=== PATIENT | male | born 1980 | race Caucasian/White ===

== ENCOUNTER → 2018-08-06 | Outpatient (CLI) | payer OTHER ==
[2018-08-06 16:40] LABS: HCT 47.2 % (39.0-53.0); HGB 15.8 gm/dL (13.0-17.5); MCH 28.8 pg (25.0-35.0); MCHC 33.6 g/dL (31.0-37.0); MCV 85.8 fL (80.0-100.0); Mean Platelet Volume 7.5; Platelet Count 205 k/uL (150-450); RBC 5.49 m/uL (4.30-5.90); RDW 13.2 % (11.5-15.5); WBC 6.3 k/uL (3.8-10.6)
[2018-08-06 17:35] LABS: Erythrocyte Sedimentation Rate 2 mm/hr (0-15)
[2018-08-07 04:07] LABS: ALT 18 U/L (10-49); AST 26 U/L (14-35); Alkaline Phosphatase 56 U/L (41-126); C Reactive Protein <0.4 mg/dL (0.0-0.8); Calcium 9.7 mg/dL (8.7-10.3); Carbon Dioxide 26.6 mmol/L (21.6-31.8); Chloride 105 mmol/L (96-109); Globulin 1.6 g/dL (2.1-3.7); Glucose 88 mg/dL (70-110); Potassium 4.3 mmol/L (3.5-5.5); Sodium 140 mmol/L (135-145); Total Bilirubin 0.6 mg/dL (0.3-1.2); Total Protein 6.4 g/dL (6.2-8.2)
== END | disposition home or self-care (01) ==
LOC: LABWHC1 16:22
DX: R10.9 Unspecified abdominal pain (principal)
CPT/HCPCS: 36415; 80053; 83516; 84439; 84443; 85027; 85652; 86140

== ENCOUNTER → 2018-08-11 | Outpatient (CLI) | payer OTHER ==
--- NOTE | 2018-08-11 14:58 | US ---
EXAMINATION TYPE: US abdomen complete DATE OF EXAM: 08/11/2018 COMPARISON: NONE CLINICAL HISTORY: R10.9 Unspecified abdominal pain. midline and lower abdominal pain EXAM MEASUREMENTS: Liver Length: 14.7 cm Gallbladder Wall: 0.1 cm CBD: 0.3 cm Spleen: 12.0 cm Right Kidney: 10.6 x 6.6 x 5.4 cm Left Kidney: 10.7 x 5.7 x 5.7 cm Pancreas: wnl Liver: wnl Gallbladder: wnl Evidence for sonographic Ricardo's sign: no CBD: wnl Spleen: wnl Right Kidney: No hydronephrosis or masses seen Left Kidney: No hydronephrosis or masses seen Upper IVC: wnl Abd Aorta: some portions obscured by overlying bowel gas IMPRESSION: 1. No suspicious acute changes
== END ==
LOC: RADUSWWP 14:14
DX: R10.9 Unspecified abdominal pain (principal)
CPT/HCPCS: 76700

== ENCOUNTER 2019-01-11 06:14 | Emergency (ER) | payer OTHER ==
--- NOTE | 2019-01-11 06:31 | ED ---
General Adult HPI - General Chief complaint: Weakness Stated complaint: Weakness Time Seen by Provider: 01/11/19 06:30 Source: patient Mode of arrival: ambulatory Limitations: no limitations - History of Present Illness Initial comments: Massimo Leroy is a 38-year-old dominant presents the emergency department today for generalized weakness. Patient reports the past 24 hours he's just felt like his entire body is weak. He reports doing completely run down and like everything he does is taking extra effort. He denies any focal weakness any weakness in his left side greater than right right-sided greater than left her lower extremity is greater than upper. He reports the generalized weakness came on yesterday throughout the day it was his whole body. Patient reports that this morning he continued to feel weak and unwell psychiatric the ER for evaluation. Patient reports he was able to ambulate out of his house to his car and drive himself here. He reports normal gait no headaches vision changes or difficulty with speech or swallowing. Patient does report that last week he was treated for sinus infection and today he started feeling somewhat nauseated. He denies any persistent URI symptoms or any redness of breath. - Related Data Home Medications Medication Instructions Recorded Confirmed Amoxicillin (Unknown Dose) 2 cap PO BID 01/11/19 01/11/19 Allergies Allergy/AdvReac Type Severity Reaction Status Date / Time No Known Allergies Allergy Verified 01/11/19 07:22 Review of Systems ROS Statement: Those systems with pertinent positive or pertinent negative responses have been documented in the HPI. ROS Other: All systems not noted in ROS Statement are negative. Past Medical History Past Medical History: No Reported History History of Any Multi-Drug Resistant Organisms: None Reported Past Surgical History: No Surgical Hx Reported Past Psychological History: No Psychological Hx Reported Smoking Status: Never smoker Past Alcohol Use History: None Reported Past Drug Use History: None Reported General Exam - General Exam Comments Initial Comments: Physical Exam GENERAL: Patient is well-developed and well-nourished. Patient is nontoxic and well-hydrated and is in no distress. HENT: Normocephalic, Atraumatic. EYES: PERRL, EOMI PULMONARY: Unlabored respirations. No audible rales rhonchi or wheezing was noted. CARDIOVASCULAR: There is a regular rate and rhythm without any murmurs gallops or rubs. ABDOMEN: Soft and nontender with normal bowel sounds. SKIN: Skin is clear with no lesions or rashes and otherwise unremarkable. : Deferred NEUROLOGIC: Patient is alert and oriented x3. Moving all extremities spontaneously Patellar and achellies reflexes 2+ bilaterally No limb drift MUSCULOSKELETAL: Normal extremities with adequate strength and full range of motion. No lower extremity swelling or edema. No calf tenderness. Normal [employer] strength, normal per extremity strength normal lower extremity range of motion and strength, normal gait PSYCHIATRIC: Normal psychiatric evaluation. Limitations: no limitations Course Vital Signs 01/11/19 01/11/19 06:20 07:23 Temperature 98.2 F 98.1 F Pulse Rate 101 H 73 Respiratory 20 18 Rate Blood Pressure 125/72 120/71 O2 Sat by Pulse 97 99 Oximetry Medical Decision Making - Medical Decision Making Patient was seen and evaluated history is obtained from patient Vital signs are within normal limits Patient is afebrile next and physical exam with no acute findings patient reports subjective weakness but has no objective findings of weakness normal strength, normal range of motion, normal reflexes Was able to stand from the bed and ambulate from room 10 in the emergency department to the x-ray suite and back without any difficulty Labs were unremarkable EKG was obtained at 6:51 AM rate of 86 rhythm is sinus there is normal axis are normal intervals, HI 142, QRS 88, QTC is 447 there are no acute ST elevations or depressions there is no evidence of acute ischemia or infarction. Laboratory and EKG results were discussed with the patient who expresses relief that everything has been normal thus far. At this time patient's comfortable with the plan for discharge home with oral hydration and rest. I offer the patient with no he stated he didn't need it he will return to work tomorrow. Al brett questions pertaining care were answered return parameters were discussed patient discharged home in stable condition. - Lab Data Result diagrams: 01/11/19 06:40 01/11/19 06:40 Lab Results 01/11/19 01/11/19 Range/Units 06:40 06:40 WBC 7.6 (3.8-10.6) k/uL RBC 5.37 (4.30-5.90) m/uL Hgb 15.3 (13.0-17.5) gm/dL Hct 44.5 (39.0-53.0) % MCV 82.8 (80.0-100.0) fL MCH 28.6 (25.0-35.0) pg MCHC 34.5 (31.0-37.0) g/dL RDW 13.8 (11.5-15.5) % Plt Count 299 (150-450) k/uL Neutrophils % 69 % Lymphocytes % 21 % Monocytes % 5 % Eosinophils % 3 % Basophils % 1 % Neutrophils # 5.3 (1.3-7.7) k/uL Lymphocytes # 1.6 (1.0-4.8) k/uL Monocytes # 0.4 (0-1.0) k/uL Eosinophils # 0.2 (0-0.7) k/uL Basophils # 0.0 (0-0.2) k/uL Sodium 140 (137-145) mmol/L Potassium 4.4 (3.5-5.1) mmol/L Chloride 107 (98-107) mmol/L Carbon Dioxide 24 (22-30) mmol/L Anion Gap 9 mmol/L BUN 19 (9-20) mg/dL Creatinine 0.95 (0.66-1.25) mg/dL Est GFR (CKD-EPI)AfAm >90 (>60 ml/min/1.73 sqM) Est GFR (CKD-EPI)NonAf >90 (>60 ml/min/1.73 sqM) Glucose 106 H (74-99) mg/dL Calcium 9.9 (8.4-10.2) mg/dL Total Bilirubin 0.6 (0.2-1.3) mg/dL AST 21 (17-59) U/L ALT 21 (21-72) U/L Alkaline Phosphatase 66 (38-126) U/L Creatine Kinase 133 (55-170) U/L Total Protein 7.2 (6.3-8.2) g/dL Albumin 4.3 (3.5-5.0) g/dL Disposition Clinical Impression: Fatigue Disposition: HOME SELF-CARE Condition: Stable Instructions (If sedation given, give patient instructions): Viral Syndrome (ED) Is patient prescribed a controlled substance at d/c from ED?: No Referrals: Cindy Van MD [Primary Care Provider] - 1-2 days
[2019-01-11] MEDS ORDERED: SODIUM CHLORIDE 0.9% 1,000 ML IV STA (06:38)
[2019-01-11 06:58] LABS: Basophils % (A) 1 %; Eosinophils # (A) 0.2 k/uL (0-0.7); Eosinophils % (A) 3 %; HCT 44.5 % (39.0-53.0); HGB 15.3 gm/dL (13.0-17.5); Lymphocytes # (A) 1.6 k/uL (1.0-4.8); Lymphocytes % (A) 21 %; MCH 28.6 pg (25.0-35.0); MCHC 34.5 g/dL (31.0-37.0); MCV 82.8 fL (80.0-100.0); Mean Platelet Volume 7.2; Monocytes # (A) 0.4 k/uL (0-1.0); Monocytes % (A) 5 %; Neutrophils # (A) 5.3 k/uL (1.3-7.7); Neutrophils % (A) 69 %; Platelet Count 299 k/uL (150-450); RBC 5.37 m/uL (4.30-5.90); RDW 13.8 % (11.5-15.5); WBC 7.6 k/uL (3.8-10.6)
[2019-01-11 07:10] LABS: ALT 21 U/L (21-72); AST 21 U/L (17-59); Albumin 4.3 g/dL (3.5-5.0); Alkaline Phosphatase 66 U/L (38-126); Anion Gap 9 mmol/L; Blood Urea Nitrogen 19 mg/dL (9-20); Calcium 9.9 mg/dL (8.4-10.2); Carbon Dioxide 24 mmol/L (22-30); Chloride 107 mmol/L (98-107); Creatine Kinase 133 U/L (55-170); Glucose 106 mg/dL (74-99); Potassium 4.4 mmol/L (3.5-5.1); Sodium 140 mmol/L (137-145); Total Bilirubin 0.6 mg/dL (0.2-1.3); Total Protein 7.2 g/dL (6.3-8.2)
--- NOTE | 2019-01-11 07:22 | XR ---
EXAMINATION TYPE: XR chest 2V DATE OF EXAM: 01/11/2019 COMPARISON: None HISTORY: 38-year-old male with weakness TECHNIQUE: PA and lateral views FINDINGS: Normal size. Aorta and pulmonary vasculature within normal limits. Mild central peribronchial cuffing noted. Strandy bibasilar atelectasis. No consolidation or pleural effusion. IMPRESSION: Mild peribronchial cuffing could represent bronchitis or asthma. Otherwise, strandy areas of atelect asis in the lower lungs without acute process.
[2019-01-11 07:27] VITALS: RESP 18
[2019-01-11 08:43] VITALS: BP 115/84; PULSE 71; TEMP 98
== END 2019-01-11 08:43 | disposition home or self-care (01) ==
LOC: EC 06:14
DX: R53.83 Other fatigue (principal); R53.1 Weakness
CPT/HCPCS: 36415; 71046; 80053; 82550; 85025; 93005; 96360; 99285

== ENCOUNTER → 2019-02-09 | Outpatient (CLI) | payer OTHER ==
--- NOTE | 2019-02-09 14:45 | CT ---
EXAMINATION TYPE: CT ChestAbdPelvis w con DATE OF EXAM: 02/09/2019 COMPARISON: HISTORY: fevers and chills CT DLP: 1635 mGycm Automated exposure control for dose reduction was used. CONTRAST: CT scan of the chest, abdomen and pelvis is performed with Oral Contrast and with IV Contrast, patien t injected with 100 mL of Isovue 300. FINDINGS: LUNGS: The lungs are grossly clear, there is no concerning parenchymal mass or nodule identified. T here is no pleural effusion or pneumothorax seen. The tracheobronchial tree is patent. MEDIASTINUM: There are no greater than 1 cm hilar or mediastinal lymph nodes. No pericardial effusi on is seen. AORTA: No significant abnormality is seen. Branch vessels show no perivascular inflammatory change, there is no caliber narrowing evident. OTHER: No additional significant abnormality is seen. LIVER/GB: No significant abnormality is appreciated. PANCREAS: No significant abnormality is seen. SPLEEN: Slightly enlarged measuring greater than 14 cm ADRENALS: No significant abnormality is seen. KIDNEYS: No significant abnormality is seen. REPRODUCTIVE ORGANS: No gross abnormality seen. BOWEL: No significant abnormality is seen. The appendix is normal. FREE AIR: No Free Air visible. ASCITES: None seen. RETROPERITONEAL ADENOPATHY: No retroperitoneal adenopathy is seen. LYMPH NODES: No greater than 1 cm abdominal or pelvic lymph nodes are appreciated. URINARY BLADDER: No significant abnormality is seen. PELVIC ADENOPATHY: None visualized. OSSEOUS STRUCTURES: Mild degenerative disc changes are present at the lower lumbar spine. IMPRESSION: Splenomegaly and degenerative disc disease.
== END | disposition home or self-care (01) ==
LOC: RADCTMAIN 10:56
PROVIDERS: ATTEND Internal Medicine Rheumatology
DX: R16.1 Splenomegaly, not elsewhere classified (principal); I77.6 Arteritis, unspecified
CPT/HCPCS: 71260; 74177; Q9967

== ENCOUNTER → 2019-03-24 | Outpatient (CLI) | payer OTHER ==
--- NOTE | 2019-03-24 16:32 | XR ---
EXAMINATION TYPE: XR elbow complete LT DATE OF EXAM: 03/24/2019 COMPARISON: NONE HISTORY: Pain and bump TECHNIQUE: 3 views FINDINGS: There is spurring on the olecranon process of the ulna. There is some spurring on the coron oid process. There is no sign of joint effusion. There is no fracture nor dislocation. IMPRESSION: Hypertrophic degenerative changes. No fracture.
== END | disposition home or self-care (01) ==
LOC: RADXRMAIN 15:54
PROVIDERS: ATTEND Internal Medicine Hematology & Oncology
DX: G93.89 Other specified disorders of brain (principal); D72.819 Decreased white blood cell count, unspecified; R16.1 Splenomegaly, not elsewhere classified; M12.9 Arthropathy, unspecified

== ENCOUNTER 2020-12-04 10:24 | Emergency (ER) | payer BC, OTHER ==
[2020-12-04 10:40] VITALS: RESP 18; TEMP 98.2
--- NOTE | 2020-12-04 12:37 | XR ---
EXAMINATION TYPE: XR chest 2V DATE OF EXAM: 12/04/2020 COMPARISON: 01/11/2019 TECHNIQUE: PA and lateral views submitted. HISTORY: Chest pain FINDINGS: The lungs are clear and there is no pneumothorax, pleural effusion, or focal pneumonia. Heart size normal. No overt failure. Interstitium stable from prior exam. IMPRESSION: 1. Mild prominence of the interstitium which is stable from the prior exam could be on the basis of c hronic bronchitis correlate clinically to exclude an early interstitial pneumonitis.
--- NOTE | 2020-12-04 13:00 | ED ---
Chest Pain HPI - General Chief Complaint: Chest Pain Stated Complaint: covid+/chest pain Time Seen by Provider: 12/04/20 12:41 Source: patient Mode of arrival: ambulatory Limitations: no limitations - History of Present Illness Initial Comments: This is a 4-year-old male who presents emergency department for episodes of chest pain and sweating in the middle of night. The patient states he was diagnosed with cold it about one week ago. He's been having mostly upper respiratory symptoms and loss of taste and smell. He states he did have some backaches previously however this has since resolved. He does note that his left leg feels a little weak to him however he still able to ambulate without any difficulty. He states that the chest pain will wake him up at night. He states he has this jolting sensation in his chest and that has associated anxiety and diaphoresis. The patient states that this will last a few minutes and then subsided on its own. The pain is not constant. Is not pleuritic in nature. He denies any shortness of breath currently. No chest pain currently. The patient states he was concerned about blood clots we can emergency department for evaluation. Patient does have a history of Jason rate and also was concerned about that with his left leg weakness. No other acute complaints. - Related Data Home Medications Medication Instructions Recorded Confirmed Ascorbic Acid [Vitamin C] 500 mg PO DAILY 12/04/20 12/04/20 Aspirin EC [Ecotrin Low Dose] 81 mg PO DAILY 12/04/20 12/04/20 Cholecalciferol [Vitamin D3 (25 25 mcg PO DAILY 12/04/20 12/04/20 Mcg = 1000 Iu)] Zinc 50 mg PO DAILY 12/04/20 12/04/20 Allergies Allergy/AdvReac Type Severity Reaction Status Date / Time No Known Allergies Allergy Verified 12/04/20 13:23 Review of Systems ROS Statement: Those systems with pertinent positive or pertinent negative responses have been documented in the HPI. ROS Other: All systems not noted in ROS Statement are negative. EKG Findings - EKG Comments: EKG Findings:: EKG showing normal sinus rhythm with a rate of 74. There is no abnormal ST segment changes or T-wave inversions. QTC is 410. Other intervals normal. No ectopy. Past Medical History Past Medical History: No Reported History History of Any Multi-Drug Resistant Organisms: None Reported Past Surgical History: No Surgical Hx Reported Past Psychological History: No Psychological Hx Reported Smoking Status: Never smoker Past Alcohol Use History: None Reported Past Drug Use History: Marijuana General Exam - General Exam Comments Initial Comments: Constitutional: Awake alert Appears comfortable Head: Normocephalic atraumatic Eyes: no conjunctival injection No scleral icterus EOMI Neck: No JVD Supple Heart: Regular rate rhythm normal S1-S2 no murmurs Lungs: Clear to auscultation bilaterally No wheezing No rales Abdomen: Soft nondistended nontender Extremities: Non edematous DP pulses intact Radial pulses intact Neuro: A&Ox3, 5 out of 5 strength with hip flexion and knee flexion and extension, dorsiflexion and plantar flexion bilaterally, 2 out of 4 patellar re flexes bilaterally sensation intact to light touch bilaterally No focal neurologic deficits Psych: Appropriate mood and affect Limitations: no limitations Course Vital Signs 12/04/20 12/04/20 10:34 14:49 Temperature 98.2 F 98.2 F Pulse Rate 72 58 L Respiratory 18 18 Rate Blood Pressure 124/81 121/70 O2 Sat by Pulse 97 100 Oximetry Chest Pain MDM - MDM Is a 40-year-old male presents emergency department for chest pain. The patient had no focal deficits on examination. EKG was unremarkable. D-dimer was unremarkable. Chest x-ray showed mild inflammation and the patient O2 sat was normal on room air. Patient was advised to monitor symptoms and return for any worsening or changing symptoms. Otherwise follow-up close with his primary doctor. All questions were answered. Disposition Clinical Impression: COVID-19 Disposition: HOME SELF-CARE Condition: Stable Instructions (If sedation given, give patient instructions): Chest Pain (ED) Is patient prescribed a controlled substance at d/c from ED?: No Referrals: Cindy Van MD [Primary Care Provider] - 1-2 days
[2020-12-04 13:31] LABS: Basophils % (A) 1 %; Eosinophils # (A) 0.1 k/uL (0-0.7); Eosinophils % (A) 2 %; HCT 44.8 % (39.0-53.0); HGB 16.1 gm/dL (13.0-17.5); Lymphocytes # (A) 1.6 k/uL (1.0-4.8); Lymphocytes % (A) 32 %; MCH 30.4 pg (25.0-35.0); MCHC 35.9 g/dL (31.0-37.0); MCV 84.8 fL (80.0-100.0); Mean Platelet Volume 8.4; Monocytes # (A) 0.3 k/uL (0-1.0); Monocytes % (A) 6 %; Neutrophils # (A) 2.8 k/uL (1.3-7.7); Neutrophils % (A) 58 %; Platelet Count 169 k/uL (150-450); RBC 5.29 m/uL (4.30-5.90); RDW 12.2 % (11.5-15.5); WBC 4.9 k/uL (3.8-10.6)
[2020-12-04 13:51] LABS: D-Dimer <0.17 mg/L FEU (<0.60); INR 1.1 (<1.2); Partial Thromboplastin Time 25.6 sec (22.0-30.0); Prothrombin Time 11.4 sec (9.0-12.0)
[2020-12-04 13:54] LABS: ALT 16 U/L (4-49); AST 26 U/L (17-59); African American GFR (CKD) >90 (>60 ml/min/1.73 sqM); Albumin 4.5 g/dL (3.5-5.0); Alkaline Phosphatase 61 U/L (38-126); Anion Gap 7 mmol/L; Blood Urea Nitrogen 16 mg/dL (9-20); Calcium 9.7 mg/dL (8.4-10.2); Carbon Dioxide 27 mmol/L (22-30); Chloride 103 mmol/L (98-107); Glucose 90 mg/dL (74-99); Non-African American GFR(CKD) >90 (>60 ml/min/1.73 sqM); Potassium 4.9 mmol/L (3.5-5.1); Sodium 137 mmol/L (137-145); Total Bilirubin 0.8 mg/dL (0.2-1.3)
[2020-12-04 14:54] VITALS: BP 121/70; PULSE 58
== END 2020-12-04 14:54 | disposition home or self-care (01) ==
LOC: EC 10:24
DX: U07.1 COVID-19 (principal); Z79.82 Long term (current) use of aspirin; Z79.899 Other long term (current) drug therapy
CPT/HCPCS: 36415; 71046; 80053; 85025; 85379; 85610; 85730; 99285

== ENCOUNTER → 2020-12-19 | Outpatient (CLI) | payer BC ==
--- NOTE | 2020-12-19 17:38 | XR ---
EXAMINATION TYPE: XR chest 2V DATE OF EXAM: 12/19/2020 COMPARISON: Chest x-ray 15 days ago. HISTORY: Chest pain 1 month ago. TECHNIQUE: Frontal and lateral views of the chest are obtained. FINDINGS: There is no new suspicious focal air space opacity, pleural effusion, or pneumothorax seen . The cardiac silhouette size remains within normal limits. The osseous structures are intact. IMPRESSION: No acute cardiopulmonary process. No significant change from prior.
== END | disposition home or self-care (01) ==
LOC: RADXRMAIN 16:53
PROVIDERS: ATTEND Internal Medicine
DX: R07.9 Chest pain, unspecified (principal)
CPT/HCPCS: 71046

== ENCOUNTER 2021-05-04 22:41 | Emergency (ER) | payer BC ==
[2021-05-04 22:52] VITALS: TEMP 97.6
[2021-05-04] MEDS ORDERED: SODIUM CHLORIDE 0.9% 1,000 ML IV STA (23:17)
--- NOTE | 2021-05-04 23:19 | ED ---
Syncope HPI - General Chief Complaint: Syncope Stated Complaint: Syncope Time Seen by Provider: 05/04/21 22:42 Source: patient, EMS, RN notes reviewed, old records reviewed Mode of arrival: EMS Limitations: no limitations - History of Present Illness Initial Comments: This is a 40-year-old male to the ER emergency department today for evaluation of syncopal event. He does have history of syncope has been evaluated by cardiology and was supposed were all provider which she has not done. Patient was in line at [facility] began to feel weak some abdominal cramping. Patient then became sweaty and passed out. Patient was found passed out as kind is brought to the ER for evaluation. Patient has had coronavirus about 3 months ago and received vaccine about a week and a half ago. Currently without chest pain or headache. 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 Patient states he worked 12 hours today without difficulty. Patient currently is without general complaint. He did have one samantha olmos MD Complaint: loss of consciousness -: minutes(s) Prodromal Symptoms: none -: second(s) Witnessed: yes - by bystander, yes - by EMS Injuries Sustained Associated with Event: None Current Symptoms: back to baseline History: previous syncopal episode Context: at rest Treatments Prior to Arrival: none - Related Data Home Medications Medication Instructions Recorded Confirmed No Known Home Medications 05/04/21 05/04/21 Allergies Allergy/AdvReac Type Severity Reaction Status Date / Time No Known Allergies Allergy Verified 05/04/21 22:53 Review of Systems ROS Statement: Those systems with pertinent positive or pertinent negative responses have been documented in the HPI. ROS Other: All systems not noted in ROS Statement are negative. Past Medical History Past Medical History: No Reported History Additional Past Medical History / Comment(s): GORDON haley+ october 2020 History of Any Multi-Drug Resistant Organisms: None Reported Past Surgical History: No Surgical Hx Reported Past Psychological History: No Psychological Hx Reported Smoking Status: Never smoker Past Alcohol Use History: None Reported Past Drug Use History: Marijuana General Exam Limitations: no limitations General appearance: alert, in no apparent distress Head exam: Present: atraumatic, normocephalic, normal inspection Eye exam: Present: normal appearance, PERRL, EOMI. Absent: scleral icterus, conjunctival injection, periorbital swelling ENT exam: Present: normal exam, mucous membranes moist Neck exam: Present: normal inspection. Absent: tenderness, meningismus, lymphadenopathy Respiratory exam: Present: normal lung sounds bilaterally. Absent: respiratory distress, wheezes, rales, rhonchi, stridor Cardiovascular Exam: Present: regular rate, normal rhythm, normal heart sounds. Absent: systolic murmur, diastolic murmur, rubs, gallop, clicks GI/Abdominal exam: Present: soft, normal bowel sounds. Absent: distended, tenderness, guarding, rebound, rigid Extremities exam: Present: normal inspection, full ROM, normal capillary refill. Absent: tenderness, pedal edema, joint swelling, calf tenderness Back exam: Present: normal inspection Neurological exam: Present: alert, oriented X3, CN II-XII intact Psychiatric exam: Present: normal affect, normal mood Skin exam: Present: warm, dry, intact, normal color. Absent: rash Course Vital Signs 05/04/21 22:48 Temperature 97.6 F Pulse Rate 62 Respiratory 18 Rate Blood Pressure 113/68 O2 Sat by Pulse 99 Oximetry EKG Findings - EKG Comments: EKG Findings:: EKG is sinus rhythm 62, MT 162 QRS 100 QTc 410 Medical Decision Making - Lab Data Result diagrams: 05/04/21 23:37 05/04/21 23:37 Lab Results 05/04/21 05/04/21 05/04/21 Range/Units 23:37 23:37 23:37 WBC 6.1 (3.8-10.6) k/uL RBC 4.85 (4.30-5.90) m/uL Hgb 14.7 (13.0-17.5) gm/dL Hct 43.0 (39.0-53.0) % MCV 88.6 (80.0-100.0) fL MCH 30.3 (25.0-35.0) pg MCHC 34.2 (31.0-37.0) g/dL RDW 13.0 (11.5-15.5) % Plt Count 214 (150-450) k/uL MPV 7.7 Neutrophils % 64 % Lymphocytes % 26 % Monocytes % 6 % Eosinophils % 2 % Basophils % 0 % Neutrophils # 3.9 (1.3-7.7) k/uL Lymphocytes # 1.6 (1.0-4.8) k/uL Monocytes # 0.4 (0-1.0) k/uL Eosinophils # 0.1 (0-0.7) k/uL Basophils # 0.0 (0-0.2) k/uL Sodium 136 L (137-145) mmol/L Potassium 3.9 (3.5-5.1) mmol/L Chloride 102 (98-107) mmol/L Carbon Dioxide 26 (22-30) mmol/L Anion Gap 8 mmol/L BUN 20 (9-20) mg/dL Creatinine 1.17 (0.66-1.25) mg/dL Est GFR (CKD-EPI)AfAm 90 (>60 ml/min/1.73 sqM) Est GFR (CKD-EPI)NonAf 78 (>60 ml/min/1.73 sqM) Glucose 85 (74-99) mg/dL Calcium 9.6 (8.4-10.2) mg/dL Phosphorus 4.1 (2.5-4.5) mg/dL Magnesium 2.1 (1.6-2.3) mg/dL Total Bilirubin 0.5 (0.2-1.3) mg/dL AST 30 (17-59) U/L ALT 15 (4-49) U/L Alkaline Phosphatase 47 (38-126) U/L Creatine Kinase 231 H (55-170) U/L NT-Pro-B Natriuret Pep 35 pg/mL Total Protein 6.4 (6.3-8.2) g/dL Albumin 4.2 (3.5-5.0) g/dL Serum Alcohol <10 mg/dL Disposition Clinical Impression: Syncope Disposition: HOME SELF-CARE Condition: Undetermined Instructions (If sedation given, give patient instructions): Syncope (ED) Is patient prescribed a controlled substance at d/c from ED?: No Referrals: Cindy Van MD [Primary Care Provider] - 1-2 days Sophia Acosta MD [STAFF PHYSICIAN] - 1-2 days
[2021-05-04 23:52] LABS: Basophils % (A) 0 %; Eosinophils # (A) 0.1 k/uL (0-0.7); Eosinophils % (A) 2 %; HGB 14.7 gm/dL (13.0-17.5); Lymphocytes # (A) 1.6 k/uL (1.0-4.8); Lymphocytes % (A) 26 %; MCH 30.3 pg (25.0-35.0); MCHC 34.2 g/dL (31.0-37.0); MCV 88.6 fL (80.0-100.0); Mean Platelet Volume 7.7; Monocytes # (A) 0.4 k/uL (0-1.0); Monocytes % (A) 6 %; Neutrophils # (A) 3.9 k/uL (1.3-7.7); Neutrophils % (A) 64 %; Platelet Count 214 k/uL (150-450); RBC 4.85 m/uL (4.30-5.90); WBC 6.1 k/uL (3.8-10.6)
--- NOTE | 2021-05-05 00:11 | CT ---
EXAMINATION TYPE: CT angio chest DATE OF EXAM: 05/05/2021 COMPARISON: None HISTORY: syncope CT DLP: 422.7 mGycm Automated exposure control for dose reduction was used. CONTRAST: Performed with IV Contrast, patient injected with 100 mL of Isovue 370. There are 3-D post processed images. There is no mediastinal adenopathy. There are no hilar masses. Thoracic aorta is intact. There is no aneurysm or dissection. Heart size is normal. There is no pericardial effusion. There is no evidence of filling defect in the pulmonary arteries. The lungs are clear of infiltrate. There is no evidence of a pulmonary mass. There is no pleural effu felisha. The thoracic spine is intact. There is no compression fracture. There is mild spurring in the thoraci c spine. IMPRESSION: Negative exam. No evidence of pulmonary embolism.
--- NOTE | 2021-05-05 00:18 | CT ---
EXAMINATION TYPE: CT abdomen pelvis w con DATE OF EXAM: 05/05/2021 COMPARISON: 02/09/2019 HISTORY: pain CT DLP: 1109.2 mGycm Automated exposure control for dose reduction was used. CONTRAST: Performed with IV Contrast, patient injected with 100 mL of Isovue 370. Images from the diaphragm to the floor the pelvis with IV contrast. Lung bases are clear. There is no pleural effusion. Heart size is normal. There is no pericardial eff usion. Liver spleen stomach pancreas gallbladder appear intact. Bile ducts are nondilated. There is no adrenal mass. Kidneys have normal size. There is no hydronephrosis. There is normal contr ast opacification of the kidneys. Delayed images show normal renal excretion. There is no retroperito neil adenopathy. Ureters are not dilated. Bladder distends smoothly. There is no inguinal hernia. There is no free fluid in the pelvis. There is no mesenteric edema. There is no ascites or free air. There is no bowel obstruction. Appendix is posterior and appears normal. Lumbar vertebra have normal alignment. There is disc space narrowing and vacuum disc at L4-5 and L5-S1. There is no compression f racture. The bony pelvis is intact. Hip joints are intact. IMPRESSION: Negative CT scan abdomen and pelvis. Normal appendix. No adverse change compared to old exam. Normal spleen.
[2021-05-05 00:20] LABS: INR 1.1 (<1.2); Prothrombin Time 11.4 sec (9.0-12.0)
[2021-05-05 00:32] LABS: ALT 15 U/L (4-49); AST 30 U/L (17-59); African American GFR (CKD) 90 (>60 ml/min/1.73 sqM); Albumin 4.2 g/dL (3.5-5.0); Alcohol <10 mg/dL; Alkaline Phosphatase 47 U/L (38-126); Anion Gap 8 mmol/L; Blood Urea Nitrogen 20 mg/dL (9-20); Calcium 9.6 mg/dL (8.4-10.2); Carbon Dioxide 26 mmol/L (22-30); Chloride 102 mmol/L (98-107); Creatine Kinase 231 U/L (55-170); Glucose 85 mg/dL (74-99); Magnesium 2.1 mg/dL (1.6-2.3); Non-African American GFR(CKD) 78 (>60 ml/min/1.73 sqM); Phosphorus 4.1 mg/dL (2.5-4.5); Potassium 3.9 mmol/L (3.5-5.1); Sodium 136 mmol/L (137-145); Total Bilirubin 0.5 mg/dL (0.2-1.3); Total Protein 6.4 g/dL (6.3-8.2)
[2021-05-05 00:49] LABS: Partial Thromboplastin Time 21.4 sec (22.0-30.0)
[2021-05-05 00:59] VITALS: BP 119/72; PULSE 71; RESP 16
== END 2021-05-05 00:55 | disposition home or self-care (01) ==
LOC: EC 22:41
DX: R55 Syncope and collapse (principal); F12.90 Cannabis use, unspecified, uncomplicated
CPT/HCPCS: 93005; 85379; 83880; 80053; 82550; 83735; 84100; 84443; 84484; 85025; 85610; 85730; 80320; 71275; 74177; 99284; Q9967

== ENCOUNTER 2024-05-14 08:41 | Emergency (ER) | payer BC ==
[2024-05-14 08:44] VITALS: RESP 18
[2024-05-14] MEDS: PROPARACAINE 0.5% OPHTH DROPS 15 ML BTL LEFT EYE STA (08:58)
[2024-05-14] MEDS: FLUORESCEIN STRIPS 1 MG STRIP LEFT EYE ONE (08:59)
--- NOTE | 2024-05-14 09:03 | ED ---
Eye Problem HPI - General Chief complaint: Eye Problems Stated complaint: Chlorine in left eye Time Seen by Provider: 05/14/24 08:45 Source: patient, RN notes reviewed Mode of arrival: ambulatory Limitations: no limitations - History of Present Illness Initial comments: This is a 43-year-old male who presents to the emergency department for a chemical burn to the left eye. States that he was at work and accidentally got powdered chlorine in his left eye. He irrigated this several times, but states that he still wanted to have it evaluated. Describes this as somewhat of a burning pain. States that his vision feels slightly blurry. - Related Data Home Medications Medication Instructions Recorded Confirmed No Known Home Medications 05/04/21 05/04/21 Allergies Allergy/AdvReac Type Severity Reaction Status Date / Time No Known Allergies Allergy Verified 05/14/24 08:44 Review of Systems ROS Statement: Those systems with pertinent positive or pertinent negative responses have been documented in the HPI. ROS Other: All systems not noted in ROS Statement are negative. Past Medical History Past Medical History: No Reported History Additional Past Medical History / Comment(s): GORDON haley+ october 2020 History of Any Multi-Drug Resistant Organisms: None Reported Past Surgical History: No Surgical Hx Reported Past Psychological History: No Psychological Hx Reported Smoking Status: Never smoker Past Alcohol Use History: Occasional Past Drug Use History: Marijuana General Exam Limitations: no limitations General appearance: alert, in no apparent distress Head exam: Present: atraumatic, normocephalic, normal inspection Eye exam: Present: PERRL, EOMI, other (Mild left conjunctival injection. No haziness or opacities to the cornea.) Respiratory exam: Present: normal lung sounds bilaterally. Absent: respiratory distress, wheezes, rales, rhonchi, stridor Cardiovascular Exam: Present: regular rate, normal rhythm, normal heart sounds. Absent: systolic murmur, diastolic murmur, rubs, gallop, clicks Neurological exam: Present: alert, oriented X3, CN II-XII intact Psychiatric exam: Present: normal affect, normal mood Skin exam: Present: warm, dry, intact, normal color. Absent: rash Course Vital Signs 05/14/24 05/14/24 08:42 09:42 Temperature 97.9 F 98.1 F Pulse Rate 77 76 Respiratory 18 18 Rate Blood Pressure 149/86 136/82 O2 Sat by Pulse 99 99 Oximetry Medical Decision Making - Medical Decision Making This is a 43 year old male who presents to the emergency department for a chemical burn to the left eye. Was pt. sent in by a medical professional or institution? @ -No Did you speak to anyone other than the patient for history? @ -No Did you review nursing and triage notes? @ -Yes, and I agree, it is accurate with regards to the patient's symptoms. Were old charts reviewed? @ -No Differential Diagnosis? @ -Differential Eye Pain: Conjuncitivitis (viral, bacterial, allergic), corneal abrasion, foreign body, iritis, uveitis, keratitis, acute angle closure glaucoma, this is not meant to be an all-inclusive list. EKG interpreted by me (3pts min.)? @ -Not obtained X-rays interpreted by me (1pt min.)? @ -Not obtained CT interpreted by me (1pt min.)? @ -Not obtained U/S interpreted by me (1pt. min.)? @ -Not obtained What testing was considered but not performed? (CT, X-rays, U/S, labs)? Why? @ -None What meds were considered but not given? Why? @ -None Did you discuss the management of the patient with other professionals? @ -No Did you reconcile home meds? @ -No Was smoking cessation discussed for >3mins.? @ -No Was critical care preformed (if so, how long)? @ -No Were there social determinants of health that impacted care today? How? (Homelessness, low income, unemployed, alcoholism, drug addiction, transportation, low edu. Level, literacy, decrease access to med. care, retirement, rehab)? @ -No Was there de-escalation of care discussed even if they declined? (Discuss DNR or withdrawal of care, Hospice)? @ -No What co-morbidities impacted this encounter? (DM, HTN, Smoking, COPD, CAD, Cancer, CVA, Hep., AIDS, mental health diagnosis, sleep apnea, morbid obesity)? @ -None Was patient admitted / discharged? @ -Discharged. Santhosh lens was used to irrigate the eye with a liter of normal saline. Patient tolerated this well with improvement in symptoms. Fluorescein staining performed afterwards revealing no damage to the cornea. pH strips demonstrate a pH of 7.0 bilaterally. He was sent home with ciprofloxacin eyedrops to be used for infectious prophylaxis. Also discussed use of artificial tears to keep the eye lubricated. Information for ophthalmology follow-up provided as well. Patient discharged home in stable condition. Case discussed with ED attending Dr. Solomon. Return precautions reviewed in depth, the patient is instructed to return to the emergency department with any new, worsening, or concerning symptoms. Patient verbalized understanding. Undiagnosed new problem with uncertain prognosis? @ -None Drug Therapy requiring intensive monitoring for toxicity (Heparin, Nitro, Insulin, Cardizem)? @ -None Were any procedures done? @ -None Diagnosis/symptom? @ -Caustic keratoconjunctivitis of left eye Acute, or Chronic, or Acute on Chronic? @ -Acute Uncomplicated (without systemic symptoms) or Complicated (systemic symptoms)? @ -Uncomplicated Side effects of treatment? @ -None Exacerbation, Progression, or Severe Exacerbation] @ -Not applicable Poses a threat to life or bodily function? @ -No Disposition Clinical Impression: Chemical keratoconjunctivitis of left eye Disposition: HOME SELF-CARE Instructions (If sedation given, give patient instructions): Chemical Eye Simpson (ED) Additional Instructions: Return to the emergency department with any new, worsening, or concerning symptoms. Apply the ciprofloxacin eyedrops provided as 2 drops to the left eye every 6 hours for the next 5 days. Try to use artificial tears to keep the eye lubricated. Follow-up with ophthalmology listed below. Is patient prescribed a controlled substance at d/c from ED?: No Referrals: Cindy Van MD [Primary Care Provider] - 1-2 days Elenita Caraballo MD [STAFF PHYSICIAN] - 1-2 days Time of Disposition: 09:26
[2024-05-14] MEDS: CIPROFLOXACIN 0.3% OPHTH SOLN 5 ML BTL LEFT EYE STA (09:33)
[2024-05-14 09:44] VITALS: BP 136/82; PULSE 76; TEMP 98.1
== END 2024-05-14 09:44 | disposition home or self-care (01) ==
LOC: EC 08:41
DX: H16.212 Exposure keratoconjunctivitis, left eye (principal)
CPT/HCPCS: 99282

== ENCOUNTER → 2024-09-15 | Outpatient (CLI) | payer BC ==
--- NOTE | 2024-09-15 13:47 | CT ---
EXAMINATION TYPE: CT abdomen pelvis wo con DATE OF EXAM: 09/15/2024 COMPARISON: 05/04/2021 CLINICAL INDICATION: Male, 43 years old with history of R10.84 GENERALIZED AB PAIN; PHH, right groin pain TECHNIQUE: CT scan of the abdomen and pelvis is performed without oral or IV contrast. CT DLP: [address] CTDI: mGy Automated exposure control for dose reduction was used. FINDINGS: Within the limitations of a non-contrast study, the following observations are made. There is a 4 mm nodule in the right middle lobe. This is a high risk patient then CT thorax is recomm ended. Gallbladder is normal and there is no gallstone, wall thickening, pericholecystic fluid or distention . There is no biliary ductal dilatation. There is no organomegaly of the liver, pancreas, spleen or adrenal glands. There are no renal calcifications or hydronephrosis. The caliber of the abdominal aorta is normal and there is no retroperitoneal adenopathy or hemorrhage . The bowel loops are normal in caliber is no evidence of obstruction. No inflammatory changes are iden tified in the mesentery and there is no free intraperitoneal air or fluid. There is no pelvic mass, free fluid, abscess or adenopathy. There is mild diverticulosis of the colon without CT evidence of diverticulitis. The osseous structures are intact. There are small bilateral 2.5 to 3 cm fat containing inguinal hernias. IMPRESSION: 1. 4 mm nodule right middle lobe. If this is a high-risk patient then CT of the thorax is recommended to evaluate the lung parenchyma in its entirety. 2. No acute changes within the abdomen or pelvis. 3. No renal calcifications or hydronephrosis. 4. Small bilateral fat-containing inguinal hernias. [facility], , 09/15/2024 1:45 PM
== END | disposition home or self-care (01) ==
LOC: RADCTMAIN 11:22
PROVIDERS: ATTEND Internal Medicine
DX: K40.20 Bilateral inguinal hernia, without obstruction or gangrene, not specified as recurrent (principal); R91.1 Solitary pulmonary nodule; R10.84 Generalized abdominal pain
CPT/HCPCS: 74176

== ENCOUNTER → 2025-02-17 | Outpatient (CLI) | payer BC ==
--- NOTE | 2025-02-17 09:57 | CT ---
EXAMINATION TYPE: CT chest w con DATE OF EXAM: 02/17/2025 7:50 AM COMPARISON: 05/04/2021 CLINICAL INDICATION: Male, 44 years old with history of R22.2 OCALIZED SWELLING, MASS AND LUMP, TRUNK ; PHH, Follow up to nodule TECHNIQUE: Multiple axial images were obtained through the chest. Sagittal and coronal reformats were created for review. MIP was performed on a separate workstation. Contrast used:100 mL of Isovue 300 with IV Contrast (None if empty) Oral contrast used: (None if empty) CT DLP: 392.1 mGycm, Automated exposure control for dose reduction was used. FINDINGS: LUNGS/ PLEURA: Right intrafissural lymph node series 3 image 30. No focal consolidation, pneumothorax or pleural effusion. AIRWAY: Patent and unremarkable. HEART: Size within normal limits. No significant coronary artery calcifications. MEDIASTINUM: No gross evidence of adenopathy. VASCULATURE: No aortic aneurysm. MUSCULOSKELETAL: Mild disc degeneration changes are present throughout the thoracolumbar spine second malik to osteophyte formation and facet joint arthropathy. SOFT TISSUES/LYMPH NODES: Unremarkable. LOWER NECK: No significant findings. UPPER ABDOMEN: No significant findings. IMPRESSION: No suspicious pulmonary nodules. Nodule on prior 05/04/2021 is compatible with intrafissural lymph node and is benign. No follow-up recommended for this. Follow up recommendations for incidental pulmonary nodules, if there are any, are per [employer] or [employer]. https://radiopaedia.org/articles/xypxisusrf-[email or web address]?lang=us [facility], , 02/17/2025 9:54 AM
== END | disposition home or self-care (01) ==
LOC: RADCTMAIN 07:20
PROVIDERS: ATTEND Internal Medicine
DX: R22.2 Localized swelling, mass and lump, trunk (principal)
CPT/HCPCS: 71260; Q9967